=== PATIENT | male | born 1965 | race American Indian/Alaskan Native ===

== ENCOUNTER 2016-10-05 09:35 | Emergency (ER) | payer SELFPAY ==
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
--- NOTE | 2016-10-05 16:10 | Cat Scan Report ---
CT ORBIT/EAR/FOSSA WITHOUT CONTRAST: INDICATION: Right eye injury, painful EOM. COMPARISON: 07/18/[address] FINDINGS: Noncontrast axial, sagittal and coronal CT reconstructions through the orbits demonstrates normal eye globes with orthotopic position of the lenses. Preserved retrobulbar fat. Slight right facial soft tissue stranding presumed post-traumatic. Mild right maxillary sinus mucosal thickening inferiorly. Poor dental hygiene with numerous maxillary periapical cysts noted measuring up to approximately 7 mm on the left anteriorly, axial image 6, series 2. Mild ethmoid sinusitis, right more than left. Slight right frontal and left sphenoid sinus mucosal thickening may also be present. Clear remainder imaged paranasal sinuses and temporal bone air cells. Right external auditory canal debris may be directly visualized. Nasal septum fairly midline, though a small 2 mm rightward nasal septal spur may be present. Patent ostiomeatal complexes bilaterally. Normal imaged intracranial appearance. CONCLUSION: 1. No acute facial fractures, though slight right-sided facial soft tissue swelling possible, as described. 2. Few other incidental findings, including dental and sinus disease, amongst others, as detailed above. Thank you for the opportunity to participate in this patient's care.
[2016-10-05] MEDS ORDERED: TETCAINE OD ONE (16:24)
[2016-10-05] MEDS ORDERED: [UNRECOGNIZED DRUG - OTHER] OD ONE (16:24)
[2016-10-05] MEDS ORDERED: BSS OD ONE (16:24)
[2016-10-05] MEDS ORDERED: FUL-GLO OP ONE (16:34)
[2016-10-05] MEDS ORDERED: BSS ONE (16:34)
[2016-10-05 17:39] VITALS: BP 182/133
== END 2016-10-05 18:22 | disposition home or self-care (01) ==
LOC: ED 09:35
DX: H20.9 Unspecified iridocyclitis (principal); I10 Essential (primary) hypertension; F17.200 Nicotine dependence, unspecified, uncomplicated; W22.8XXA Striking against or struck by other objects, initial encounter; Y93.9 Activity, unspecified; Y92.9 Unspecified place or not applicable; Y99.9 Unspecified external cause status
CPT/HCPCS: 70480

== ENCOUNTER 2017-11-22 14:30 | Emergency (ER) | payer OTHER ==
[2017-11-22] MEDS ORDERED: NACL 0.9% 1000 ML 1,000 ML IV ONE (14:56)
[2017-11-22] MEDS ORDERED: TORADOL IV ONE (14:56)
[2017-11-22] MEDS ORDERED: ZOFRAN IV ONE (14:56)
[2017-11-22] MEDS ORDERED: MORPHINE IV ONE (14:56)
--- NOTE | 2017-11-22 14:56 | Emergency Department Report ---
Blank Doc - Documentation Documentation: The patient is a 52-year-old Afghan male who was having right-sided flank pain today. Patient states he also said some nausea vomiting. Patient states he has a sensation that he feels like he needs to go to the bathroom. Patient will be moved to a treatment area to get labs urine and a CT to rule out a kidney stone.
[2017-11-22 15:25] LABS: Basophils # (Auto) 0.1 K/mm3 (0.0-0.1); Basophils % (Auto) 0.5 % (0.0-1.8); Eosinophils # (Auto) 0.1 K/mm3 (0.0-0.4); Eosinophils % (Auto) 1.1 % (0.0-4.3); Hematocrit 41.2 % (35.5-45.6); Hemoglobin 13.3 gm/dl (11.8-15.2); Lymphocytes # (Auto) 2.5 K/mm3 (1.2-5.4); Lymphocytes % (Auto) 20.4 % (13.4-35.0); Mean Corpuscular HGB Conc 32 % (32-34); Mean Corpuscular Hemoglobin 26 pg (28-32); Mean Corpuscular Volume 81 fl (84-94); Monocytes # (Auto) 0.7 K/mm3 (0.0-0.8); Monocytes % (Auto) 5.9 % (0.0-7.3); Platelet Count 180 K/mm3 (140-440); Red Blood Count 5.09 M/mm3 (3.65-5.03)
[2017-11-22 15:37] LABS: Calcium 8.9 mg/dL (8.4-10.2)
[2017-11-22 15:40] LABS: Bacteria,Urine 1+ /HPF (Negative); Bilirubin,Urine NEG (Negative); Blood,Urine SM (Negative); Color,Urine Straw (Yellow); Mucus,Urine FEW /HPF; Protein,Urine <15 mg/dL mg/dL (Negative); Urobilinogen,Urine < 2.0 mg/dL (<2.0)
--- NOTE | 2017-11-22 16:25 | Emergency Department Report ---
ED Abdominal Pain HPI - General Chief Complaint: Abdominal Pain Stated Complaint: "Im in pain" Time Seen by Provider: 11/22/17 14:52 Source: patient Mode of arrival: Ambulatory Limitations: No Limitations - History of Present Illness Initial Comments: This is a 52-year-old male nontoxic, well nourished in appearance, no acute signs of distress presents to the ED with c/o of right flank pain x1 day. Patient stated he wake up this morning with severe flank pain. Patient stated in the waiting room in the hospital he vomited which subsided his symptoms. Patient currently denies any pain. Patient denies any nausea, vomiting, chest pain, shortness of rbeathe, abdominal pain, headache stiff, fever, or chills. Patient denies dysuria, hematuria, or polyuria. Patient denies any allergies or significant past medical history. MD Complaint: flank pain -: This morning Location: R flank Radiation: none Severity: mild Severity scale (0 -10): 8 Quality: aching Consistency: constant Improves With: nothing Worsens With: nothing Associated Symptoms: nausea, vomiting. denies: diarrhea, fever, chills, constipation, dysuria, hematemesis, hematochezia, melena, hematuria, anorexia, syncope - Related Data Previous Rx's Medication Instructions Recorded Last Taken Type Cyclobenzaprine [Flexeril 10mg] 10 mg PO TID PRN #30 tablet 05/29/14 Unknown Rx HYDROcodone/APAP 5-325 [[place] 1 each PO Q6HR PRN #10 tablet 05/29/14 Unknown Rx 5/325] Hydrocortisone 2.5% [Hytone 2.5% 1 applicatio TP TID #1 tube 05/29/14 Unknown Rx CREAM] Ibuprofen [Motrin] 800 mg PO Q8H #30 tablet 05/29/14 Unknown Rx Lisinopril/Hydrochlorothiazide 1 tab PO QDAY #30 tablet 07/18/14 Unknown Rx [Zestoretic 10-12.5 mg] Acetaminophen/Codeine [Tylenol #3] 1 tab PO TID PRN #15 tab 04/24/15 Unknown Rx methOCARBAMOL [Robaxin TAB] 500 mg PO BID #30 tab 04/24/15 Unknown Rx prednisoLONE ACETATE [Prednisolone 2 drops OP QID #1 bottle 10/05/16 Unknown Rx Acetate] Ibuprofen [Motrin] 600 mg PO Q8H PRN #30 tablet 11/22/17 Unknown Rx Allergies Allergy/AdvReac Type Severity Reaction Status Date / Time No Known Allergies Allergy Verified 04/24/15 14:48 ED Review of Systems ROS: Stated complaint: "Im in pain" Other details as noted in HPI Constitutional: denies: chills, fever Eyes: denies: eye pain, eye discharge, vision change ENT: denies: ear pain, throat pain Respiratory: denies: cough, shortness of breath, wheezing Cardiovascular: denies: chest pain, palpitations Endocrine: no symptoms reported Gastrointestinal: denies: abdominal pain, nausea, diarrhea Genitourinary: denies: urgency, dysuria Musculoskeletal: back pain (right flank pain). denies: joint swelling, arthralgia Skin: denies: rash, lesions Neurological: denies: headache, weakness, paresthesias Psychiatric: denies: anxiety, depression Hematological/Lymphatic: denies: easy bleeding, easy bruising ED Past Medical Hx - Past Medical History Hx Hypertension: Yes - Social History Smoking Status: Current Every Day Smoker Substance Use Type: None - Medications Home Medications: Home Medications Medication Instructions Recorded Confirmed Last Taken Type Cyclobenzaprine [Flexeril 10mg] 10 mg PO TID PRN #30 tablet 05/29/14 Unknown Rx HYDROcodone/APAP 5-325 [[place] 1 each PO Q6HR PRN #10 tablet 05/29/14 Unknown Rx 5/325] Hydrocortisone 2.5% [Hytone 2.5% 1 applicatio TP TID #1 tube 05/29/14 Unknown Rx CREAM] Ibuprofen [Motrin] 800 mg PO Q8H #30 tablet 05/29/14 Unknown Rx Lisinopril/Hydrochlorothiazide 1 tab PO QDAY #30 tablet 07/18/14 Unknown Rx [Zestoretic 10-12.5 mg] Acetaminophen/Codeine [Tylenol #3] 1 tab PO TID PRN #15 tab 04/24/15 Unknown Rx methOCARBAMOL [Robaxin TAB] 500 mg PO BID #30 tab 04/24/15 Unknown Rx prednisoLONE ACETATE [Prednisolone 2 drops OP QID #1 bottle 10/05/16 Unknown Rx Acetate] Ibuprofen [Motrin] 600 mg PO Q8H PRN #30 tablet 11/22/17 Unknown Rx ED Physical Exam - General Limitations: No Limitations General appearance: alert, in no apparent distress - Head Head exam: Present: atraumatic, normocephalic - Eye Eye exam: Present: normal appearance Pupils: Present: normal accommodation - ENT ENT exam: Present: normal exam, normal orophraynx, mucous membranes moist, TM's normal bilaterally, normal external ear exam - Neck Neck exam: Present: normal inspection, full ROM. Absent: tenderness, meningismus, lymphadenopathy, thyromegaly - Respiratory Respiratory exam: Present: normal lung sounds bilaterally. Absent: respiratory distress, wheezes, rales, rhonchi, stridor, chest wall tenderness, decreased breath sounds, prolonged expiratory - Cardiovascular Cardiovascular Exam: Present: regular rate, normal rhythm, normal heart sounds. Absent: bradycardia, tachycardia, irregular rhythm, systolic murmur, diastolic murmur, rubs, gallop - GI/Abdominal GI/Abdominal exam: Present: soft, normal bowel sounds. Absent: distended, tenderness, guarding, rebound, rigid, diminished bowel sounds - Expanded GI/Abdominal Exam Expanded GI/Abdominal exam: Absent: psoas sign, obturator sign, heel tap sign, Coulter's sign, Rovsing's sign, tenderness at Mcburney's Point, ascites - Rectal Rectal exam: Present: deferred - Extremities Exam Extremities exam: Present: normal inspection, full ROM, normal capillary refill. Absent: tenderness, pedal edema, joint swelling, calf tenderness - Back Exam Back exam: Present: normal inspection, full ROM. Absent: tenderness, CVA tenderness (R), CVA tenderness (L), muscle spasm, paraspinal tenderness, vertebral tenderness, rash noted - Neurological Exam Neurological exam: Present: alert, oriented X3, CN II-XII intact, normal gait, reflexes normal - Psychiatric Psychiatric exam: Present: normal affect, normal mood - Skin Skin exam: Present: warm, dry, intact, normal color. Absent: rash ED Course Vital Signs 11/22/17 14:33 Temperature 98.9 F Pulse Rate 77 Respiratory 20 Rate Blood Pressure 193/115 O2 Sat by Pulse 98 Oximetry - Reevaluation(s) Reevaluation #1: 11/22/17 16:26 Patient is speaking in full sentences with no signs of distress noted. - Consultations Consultation #1: 11/22/17 16:26 Patient has been consulted with Dr. Huynh about patient history, physical exam , and labs and examined and screened patient and agrees to ED plan of care and discharge plan of care. ED Medical Decision Making - Lab Data Result diagrams: 11/22/17 15:07 11/22/17 15:07 - Medical Decision Making This is a 52-year-old male that presents with calculus. Patient is stable and was examined by me and Dr. Huynh. CT of abdomen/pelvis without contrast obtained and dictated by radiologist. Patient was notified of the CT results with focus noted by the patient. Upon examination patient denies any flank pain as he stated subsided. She did receive 1 L of normal saline, morphine, Toradol, and Zofran. Patient was instructed not to operate after discharge due to drowsiness of morphine as he stated he will have somebody pick him up and drive him home. Patient was instructed to increase hydration. Patient is discharge with motrin. Patient was instructed to Follow-up with a primary care doctor in 3-5 days or if symptoms worsen and continue return to emergency room as soon as possible. At time of discharge, the patient does not seem toxic or ill in appearance. No acute signs of distress noted. Patient agrees to discharge treatment plan of care. No further questions noted by the patient. Critical care attestation.: If time is entered above; I have spent that time in minutes in the direct care of this critically ill patient, excluding procedure time. ED Disposition Clinical Impression: Bilateral kidney stones Disposition: DC-01 TO HOME OR SELFCARE Is pt being admited?: No Does the pt Need Aspirin: No Condition: Stable Instructions: Kidney Stones (ED) Additional Instructions: Follow-up with a primary care/nephrology doctor in 3-5 days or if symptoms worsen and continue return to emergency room as soon as possible. Prescriptions: Ibuprofen [Motrin] 600 mg PO Q8H PRN #30 tablet PRN Reason: Pain Referrals: PRIMARY CAREMD [Primary Care Provider] - 3-5 Days SEAN HERNANDEZ MD [Staff Physician] - 3-5 Days TATO DALLAS MD [Staff Physician] - 3-5 Days [facility] [Outside] - 3-5 Days [facility] [Outside] - 3-5 Days Forms: Work/School Release Form(ED)
--- NOTE | 2017-11-22 17:12 | Cat Scan Report ---
FINAL REPORT EXAM: CT ABDOMEN PELVIS WO CON HISTORY: flank pain TECHNIQUE: Unenhanced stone protocol CT of the abdomen and pelvis at 2.5 millimeter axial increments. Coronal and sagittal reconstruction was also performed. PRIORS: None. FINDINGS: There is 3.8 mm calculus located within the bladder just inside the right distal ureterovesical junction. There is moderate right-sided hydronephrosis suggesting residual edema at the ureterovesical junction the stranding around the right ureter and right kidney is noted suggesting inflammation. There is a tiny 2 mm nonobstructing calculus in the midpole left kidney. There is a homogeneous hyperdense 1.2 x 1.0 cm focus off the lateral midpole of the right kidney. This is probably a hemorrhagic cyst but should be confirmed with ultrasound. No evidence for bladder mass is seen. Otherwise, within the limits of a noncontrast exam, the liver, spleen, pancreas, gallbladder, and adrenal glands are unremarkable. No evidence for retroperitoneal or pelvic lymphadenopathy is seen. The bowel loops have normal caliber. No fluid collection or free air is seen within the abdomen or pelvis. The appendix is normal. Within the pelvis, the prostate is normal. Diverticuli of the proximal sigmoid colon are noted without active diverticulitis. Images through the upper abdomen include the lung bases which are expanded and clear. Bony structures show numerous lucent foci with surrounding sclerotic margins throughout the lumbar spine from T12-L4 and the mid thoracic spine. Severe disc space narrowing from L1 through L4 is noted. Findings are likely related to Schmorl's nodes, subchondral cysts, and degenerative changes. A similar finding is also noted in the right ilium near the SI joint. IMPRESSION: 1. The the recently passed calculus now seen in the urinary bladder. There is residual edema at the right ureterovesical junction with moderate hydronephrosis of the right collecting system still noted. Extensive stranding in the adjacent fat surrounding the collecting system is also noted suggesting inflammation 2. Nonobstructing calculus in the left midpole kidney 3. Hyperdense rounded focus off the lateral midpole right kidney which is probably a hemorrhagic cyst but should be confirmed with ultrasound 4. Diverticuli of the sigmoid colon 5. Numerous foci throughout the bony structures, findings are likely consistent with Schmorl's nodes, subchondral cysts, and degenerative change.
[2017-11-22 17:33] VITALS: BP 146/92
== END 2017-11-22 17:42 | disposition home or self-care (01) ==
LOC: ED 14:30
DX: N20.0 Calculus of kidney (principal); I10 Essential (primary) hypertension; F17.200 Nicotine dependence, unspecified, uncomplicated
CPT/HCPCS: 36415; 74176; 80048; 81001; 85025; 96361; 96374; 96375; 99284; J1885; J2270; J2405; J7030

== ENCOUNTER 2017-12-17 19:42 | Emergency (ER) | payer SELFPAY ==
[2017-12-17] MEDS ORDERED: TYLENOL PO ONE (20:14)
[2017-12-17] MEDS ORDERED: NACL 0.9% 1000 ML 1,000 ML IV ONE (22:22)
[2017-12-17] MEDS ORDERED: TORADOL IV ONE (22:22)
[2017-12-17] MEDS ORDERED: ZOFRAN IV ONE (22:22)
--- NOTE | 2017-12-17 22:27 | Emergency Department Report ---
HPI - General Chief Complaint: Upper Respiratory Infection Time Seen by Provider: 12/17/17 22:15 - HPI HPI: [place] 25 The patient is a 52-year-old male presenting with chief complaint of fever and cough. The patient states his symptoms began yesterday afternoon with a nonproductive cough. Patient states isn't a progress developed soreness in his throat in addition to facial pains. The patient states he then developed nausea vomiting and diarrhea. Patient was not aware of any sick contacts Location: [See above] Duration: 2 days Quality: Soreness Severity: Moderate Modifying factors: [see above] Context: [see above] Mode of transportation: [not driving] ED Past Medical Hx - Past Medical History Hx Hypertension: Yes - Surgical History Past Surgical History?: No - Family History Family history: no significant - Social History Smoking Status: Current Every Day Smoker (1 pack per day) Substance Use Type: Marijuana - Medications Home Medications: Home Medications Medication Instructions Recorded Confirmed Last Taken Type Cyclobenzaprine [Flexeril 10mg] 10 mg PO TID PRN #30 tablet 05/29/14 Unknown Rx HYDROcodone/APAP 5-325 [[place] 1 each PO Q6HR PRN #10 tablet 05/29/14 Unknown Rx 5/325] Hydrocortisone 2.5% [Hytone 2.5% 1 applicatio TP TID #1 tube 05/29/14 Unknown Rx CREAM] Ibuprofen [Motrin] 800 mg PO Q8H #30 tablet 05/29/14 Unknown Rx Lisinopril/Hydrochlorothiazide 1 tab PO QDAY #30 tablet 07/18/14 Unknown Rx [Zestoretic 10-12.5 mg] Acetaminophen/Codeine [Tylenol #3] 1 tab PO TID PRN #15 tab 04/24/15 Unknown Rx methOCARBAMOL [Robaxin TAB] 500 mg PO BID #30 tab 04/24/15 Unknown Rx prednisoLONE ACETATE [Prednisolone 2 drops OP QID #1 bottle 10/05/16 Unknown Rx Acetate] Ibuprofen [Motrin] 600 mg PO Q8H PRN #30 tablet 11/22/17 Unknown Rx Ciprofloxacin HCl [Ciprofloxacin 100 mg PO BID #20 tablet 12/18/17 Unknown Rx TAB] Diphenoxylate/Atropine [Lomotil] 2 tab PO QID PRN #20 tablet 12/18/17 Unknown Rx HYDROcodone/APAP 5-325 [[place] 1 - 2 each PO Q6HR PRN #10 tablet 12/18/17 Unknown Rx 5/325] Promethazine [Phenergan TAB] 25 mg PO Q6HR PRN #20 tab 12/18/17 Unknown Rx Promethazine [Phenergan] 25 mg [place] Q6HR PRN #5 supp.rect 12/18/17 Unknown Rx ED Review of Systems ROS: Stated complaint: COUGH Other details as noted in HPI Constitutional: fever ENT: throat pain Respiratory: cough Gastrointestinal: nausea, vomiting, diarrhea Musculoskeletal: myalgia Physical Exam - Physical Exam Vital Signs: Vital Signs 12/17/17 12/17/17 12/17/17 20:05 20:10 20:19 Temperature 102.2 F H 102.2 F H Pulse Rate 67 77 Respiratory 18 18 18 Rate Blood Pressure 168/106 168/106 O2 Sat by Pulse 95 97 Oximetry 12/17/17 22:21 Temperature 100.2 F H Pulse Rate Respiratory Rate Blood Pressure O2 Sat by Pulse Oximetry Physical Exam: GENERAL: The patient is well-developed well-nourished male lying on stretcher not appearing to be in acute distress. [] HEENT: Normocephalic. Atraumatic. Patient has moist mucous membranes. NECK: Supple. No meningitic signs are noted. There is no adenopathy noted. CHEST/LUNGS: Clear to auscultation. There is no respiratory distress noted. HEART/CARDIOVASCULAR: Regular. There is no tachycardia. There is no gallop rub or murmur. ABDOMEN: Abdomen is soft, nontender. Patient has normal bowel sounds. There is no abdominal distention. SKIN: There is no rash. There is no edema. There is no diaphoresis. NEURO: The patient is awake, alert, and oriented. The patient is cooperative. The patient has normal speech MUSCULOSKELETAL:There is no evidence of acute injury. ED Course Vital Signs 12/17/17 12/17/17 12/17/17 20:05 20:10 20:19 Temperature 102.2 F H 102.2 F H Pulse Rate 67 77 Respiratory 18 18 18 Rate Blood Pressure 168/106 168/106 O2 Sat by Pulse 95 97 Oximetry 12/17/17 22:21 Temperature 100.2 F H Pulse Rate Respiratory Rate Blood Pressure O2 Sat by Pulse Oximetry ED Medical Decision Making - Lab Data Result diagrams: 12/17/17 Unknown 12/17/17 Unknown Laboratory Tests 12/17/17 12/17/17 12/17/17 00:19 Unknown Unknown WBC 5.1 RBC 4.68 Hgb 12.2 Hct 38.0 MCV 81 L MCH 26 L MCHC 32 RDW 14.8 Plt Count 141 [place] % (Auto) Paper Cone Maker Add Manual Diff Complete Total Counted 100 Seg Neuts % (Manual) 60.0 Band Neutrophils % 8.0 Lymphocytes % (Manual) 6.0 L Reactive Lymphs % (Man) 0 Monocytes % (Manual) 26.0 H Eosinophils % (Manual) 0 Basophils % (Manual) 0 Metamyelocytes % 0 Myelocytes % 0 Promyelocytes % 0 Blast Cells % 0 Nucleated RBC % Not Reportable Seg Neutrophils # Man 3.1 Band Neutrophils # 0.4 Lymphocytes # (Manual) 0.3 L Abs React Lymphs (Man) 0.0 Monocytes # (Manual) 1.3 H Eosinophils # (Manual) 0.0 Basophils # (Manual) 0.0 Metamyelocytes # 0.0 Myelocytes # 0.0 Promyelocytes # 0.0 Blast Cells # 0.0 WBC Morphology Not Reportable Hypersegmented Neuts Not Reportable Hyposegmented Neuts Not Reportable Hypogranular Neuts Not Reportable Smudge Cells Not Reportable Toxic Granulation Not Reportable Toxic Vacuolation Not Reportable Dohle Bodies Not Reportable Pelger-Huet Anomaly Not Reportable Gabrielle Rods Not Reportable Platelet Estimate Appears normal Clumped Platelets Not Reportable Plt Clumps, EDTA Not Reportable Large Platelets Not Reportable Giant Platelets Not Reportable Platelet Satelliting Not Reportable Plt Morphology Comment Not Reportable RBC Morphology Not Reportable Dimorphic RBCs Not Reportable Polychromasia Not Reportable Hypochromasia 1+ Poikilocytosis Not Reportable Anisocytosis 1+ Microcytosis Not Reportable Macrocytosis Not Reportable Spherocytes Not Reportable Pappenheimer Bodies Not Reportable Sickle Cells Not Reportable Target Cells Not Reportable Tear Drop Cells Not Reportable Ovalocytes Not Reportable Helmet Cells Not Reportable Hardy-Sarcoxie Bodies Not Reportable [place] Rings Not Reportable Meadow Cells Not Reportable Bite Cells Not Reportable Crenated Cell Not Reportable Elliptocytes Not Reportable Acanthocytes (Spur) Not Reportable Rouleaux Not Reportable Hemoglobin C Crystals Not Reportable Schistocytes Not Reportable Malaria parasites Not Reportable Abel Bodies Not Reportable Hem Pathologist Commnt No Sodium 133 L Potassium 3.5 L Chloride 96.3 L Carbon Dioxide 25 Anion Gap 15 BUN 13 Creatinine 1.3 Estimated GFR > 60 BUN/Creatinine Ratio 10 Glucose 112 H Calcium 8.9 Total Bilirubin 0.60 AST 40 ALT 14 Alkaline Phosphatase 50 Total Protein 6.9 Albumin 3.7 L Albumin/Globulin Ratio 1.2 Lipase 39 Influenza A (Rapid) Negative Influenza B (Rapid) Negative - Radiology Data Radiology results: image reviewed (chest x-ray) interpreted by me: Chest x-ray-no focal infiltrates, no pneumothorax - Differential Diagnosis gastroenteritis, influenza, sinusitis, pneumonia, Critical care attestation.: If time is entered above; I have spent that time in minutes in the direct care of this critically ill patient, excluding procedure time. ED Disposition Clinical Impression: Acute sinusitis, Nausea vomiting and diarrhea Disposition: TO HOME OR SELFCARE Is pt being admited?: No Does the pt Need Aspirin: No Condition: Stable Instructions: Acute Nausea and Vomiting (ED), Sinusitis (ED) Additional Instructions: Return to the emergency department immediately should you develop worsening symptoms, fever, inability to tolerate food or liquid or any other concerns. Prescriptions: Ciprofloxacin HCl [Ciprofloxacin TAB] 100 mg PO BID #20 tablet Diphenoxylate/Atropine [Lomotil] 2 tab PO QID PRN #20 tablet PRN Reason: Diarrhea HYDROcodone/APAP 5-325 [[place] 5/325] 1 - 2 each PO Q6HR PRN #10 tablet PRN Reason: Pain Promethazine [Phenergan TAB] 25 mg PO Q6HR PRN #20 tab PRN Reason: Nausea Promethazine [Phenergan] 25 mg [place] Q6HR PRN #5 supp.rect PRN Reason: Vomiting Referrals: SRINATH LAY MD [Primary Care Provider] - 3-5 Days Time of Disposition: 01:28
[2017-12-17 22:46] LABS: Hemoglobin 12.2 gm/dl (11.8-15.2); Mean Corpuscular HGB Conc 32 % (32-34); Mean Corpuscular Hemoglobin 26 pg (28-32); Mean Corpuscular Volume 81 fl (84-94); Platelet Count 141 K/mm3 (140-440); Red Blood Count 4.68 M/mm3 (3.65-5.03); Red Cell Distribution Width 14.8 % (13.2-15.2)
[2017-12-17 23:01] LABS: Alanine Aminotransferase 14 units/L (7-56); Albumin 3.7 g/dL (3.9-5); BUN/Creatinine Ratio 10; Blood Urea Nitrogen 13 mg/dL (9-20); Calcium 8.9 mg/dL (8.4-10.2); Hemolysis Index 6; Lipase 39 units/L (13-60)
[2017-12-18 00:07] LABS: Anisocytosis 1+; Band Neutrophils # (Manual) 0.4 K/mm3; Basophils % (Manual) 0 % (0.0-1.8); Eosinophils % (Manual) 0 % (0.0-4.3); Hypochromasia 1+; Total Cells Counted 100
--- NOTE | 2017-12-18 00:30 | XRay Report ---
FINAL REPORT PROCEDURE: XR CHEST ROUTINE 2V TECHNIQUE: PA and lateral chest radiographs were obtained. CPT 77736 HISTORY: cough, fever COMPARISON: No prior studies are available for comparison. FINDINGS: Heart: Normal. Mediastinum/Vessels: Normal. Lungs/Pleural space: There are no infiltrates, effusions or pneumothoraces.. Bony thorax: No acute osseous abnormality. Other: IMPRESSION: Normal heart and lungs..
[2017-12-18] MEDS ORDERED: XYLOCAINE 1% MPF 5 mL INFILTRATI ONE (01:23)
[2017-12-18] MEDS ORDERED: ROCEPHIN IM ONE (01:23)
[2017-12-18 01:30] VITALS: BP 164/99
[2017-12-18] MEDS ORDERED: ROCEPHIN/NS 1 GM/50 ML 1 GM/50 ML BAG IV ONE (01:31)
[2017-12-18] MEDS ORDERED: cefTRIAXone 1 GM in NACL 0.9% 20 ML IV ONE (02:00)
== END 2017-12-18 02:15 | disposition home or self-care (01) ==
LOC: ED 19:42
DX: J01.90 Acute sinusitis, unspecified (principal); R11.2 Nausea with vomiting, unspecified; R19.7 Diarrhea, unspecified; F17.210 Nicotine dependence, cigarettes, uncomplicated; I10 Essential (primary) hypertension; F12.10 Cannabis abuse, uncomplicated
CPT/HCPCS: 36415; 71046; 80053; 83690; 85007; 85025; 87040; 87400; 96361; 96374; 96375; 99284; J0696; J1885; J2405; J7030

== ENCOUNTER 2020-11-01 08:51 | Emergency (ER) | payer SELFPAY ==
[2020-11-01 09:24] VITALS: BP 159/112
--- NOTE | 2020-11-01 09:28 | Event Note ---
ED Screening Note Date of service: 11/01/20 Time: 09:26 ED Screening Note: 55-year-old -[place] male with a history of hypertension presents to the emergency room for a headache that he has been having. Patient reports he has been out of his blood pressure medications for several months. Patient reports that he was taking amlodipine 10 mg daily and hydralazine 100 mg 3 times daily and lisinopril 40 mg patient does not have a primary care provider. This initial assessment/diagnostic orders/clinical plan/treatment(s) is/are subject to change based on patients health status, clinical progression and re- assessment by fellow clinical providers in the ED. Further treatment and workup at subsequent clinical providers discretion. Patient/guardian urged not to elope from the ED as their condition may be serious if not clinically assessed and managed. Initial orders include:
[2020-11-01] MEDS ORDERED: ACETAMINOPHEN 325 MG TAB PO ONE (09:29)
[2020-11-01] MEDS ORDERED: hydrALAZINE 100 MG TAB PO ONE (09:29)
[2020-11-01 11:02] LABS: Alanine Aminotransferase 10 units/L (7-56); BUN/Creatinine Ratio 9; Blood Urea Nitrogen 11 mg/dL (9-20); Calcium 9.4 mg/dL (8.4-10.2); Hemolysis Index 6
--- NOTE | 2020-11-01 12:11 | Emergency Department Report ---
ED General Adult HPI - General Chief complaint: Headache Stated complaint: hypertension Source: patient Mode of arrival: Ambulatory Limitations: No Limitations - History of Present Illness Initial comments: 55-year-old -[place] male with a history of hypertension presents to the emergency room for a headache that he has been having. Patient reports he has been out of his blood pressure medications for several months. Patient reports that he was taking amlodipine 10 mg daily and hydralazine 100 mg 3 times daily and lisinopril 40 mg patient does not have a primary care provider. Onset/Timin -: week(s) Location: head Severity scale (0 -10): 10 Quality: aching Consistency: constant Improves with: none Worsens with: none Associated Symptoms: denies: chest pain, cough, fever/chills, nausea/vomiting, shortness of breath, weakness Treatments Prior to Arrival: none - Related Data Previous Rx's Medication Instructions Recorded Last Taken Type Cyclobenzaprine [Flexeril 10mg] 10 mg PO TID PRN #30 tablet 05/29/14 Unknown Rx HYDROcodone/APAP 5-325 [[place] 1 each PO Q6HR PRN #10 tablet 05/29/14 Unknown Rx 5/325] Hydrocortisone 2.5% [Hytone 2.5% 1 applicatio TP TID #1 tube 05/29/14 Unknown Rx CREAM] Ibuprofen [Motrin] 800 mg PO Q8H #30 tablet 05/29/14 Unknown Rx Lisinopril/Hydrochlorothiazide 1 tab PO QDAY #30 tablet 07/18/14 Unknown Rx [Zestoretic 10-12.5 mg] Acetaminophen/Codeine [Tylenol #3] 1 tab PO TID PRN #15 tab 04/24/15 Unknown Rx methOCARBAMOL [Robaxin TAB] 500 mg PO BID #30 tab 04/24/15 Unknown Rx prednisoLONE ACETATE [Prednisolone 2 drops OP QID #1 bottle 10/05/16 Unknown Rx Acetate] Ibuprofen [Motrin] 600 mg PO Q8H PRN #30 tablet 11/22/17 Unknown Rx Ciprofloxacin HCl [Ciprofloxacin 100 mg PO BID #20 tablet 12/18/17 Unknown Rx TAB] Diphenoxylate/Atropine [Lomotil] 2 tab PO QID PRN #20 tablet 12/18/17 Unknown Rx HYDROcodone/APAP 5-325 [[place] 1 - 2 each PO Q6HR PRN #10 tablet 12/18/17 Unknown Rx 5/325] Promethazine [Phenergan TAB] 25 mg PO Q6HR PRN #20 tab 12/18/17 Unknown Rx Promethazine [Phenergan] 25 mg [place] Q6HR PRN #5 supp.rect 12/18/17 Unknown Rx amLODIPine 10 mg PO DAILY #30 tab 11/01/20 Unknown Rx Allergies Allergy/AdvReac Type Severity Reaction Status Date / Time No Known Allergies Allergy Verified 04/24/15 14:48 ED Review of Systems ROS: Stated complaint: hypertension Other details as noted in HPI ED Past Medical Hx - Past Medical History Previous Medical History?: Yes Hx Hypertension: Yes - Social History Smoking Status: Current Every Day Smoker Substance Use Type: Marijuana - Medications Home Medications: Home Medications Medication Instructions Recorded Confirmed Last Taken Type Cyclobenzaprine [Flexeril 10mg] 10 mg PO TID PRN #30 tablet 05/29/14 Unknown Rx HYDROcodone/APAP 5-325 [[place] 1 each PO Q6HR PRN #10 tablet 05/29/14 Unknown Rx 5/325] Hydrocortisone 2.5% [Hytone 2.5% 1 applicatio TP TID #1 tube 05/29/14 Unknown Rx CREAM] Ibuprofen [Motrin] 800 mg PO Q8H #30 tablet 05/29/14 Unknown Rx Lisinopril/Hydrochlorothiazide 1 tab PO QDAY #30 tablet 07/18/14 Unknown Rx [Zestoretic 10-12.5 mg] Acetaminophen/Codeine [Tylenol #3] 1 tab PO TID PRN #15 tab 04/24/15 Unknown Rx methOCARBAMOL [Robaxin TAB] 500 mg PO BID #30 tab 04/24/15 Unknown Rx prednisoLONE ACETATE [Prednisolone 2 drops OP QID #1 bottle 10/05/16 Unknown Rx Acetate] Ibuprofen [Motrin] 600 mg PO Q8H PRN #30 tablet 11/22/17 Unknown Rx Ciprofloxacin HCl [Ciprofloxacin 100 mg PO BID #20 tablet 12/18/17 Unknown Rx TAB] Diphenoxylate/Atropine [Lomotil] 2 tab PO QID PRN #20 tablet 12/18/17 Unknown Rx HYDROcodone/APAP 5-325 [[place] 1 - 2 each PO Q6HR PRN #10 tablet 03/26/18 Unknown Rx 5/325] Promethazine [Phenergan TAB] 25 mg PO Q6HR PRN #20 tab 12/18/17 Unknown Rx Promethazine [Phenergan] 25 mg [place] Q6HR PRN #5 supp.rect 12/18/17 Unknown Rx amLODIPine 10 mg PO DAILY #30 tab 11/01/20 Unknown Rx ED Physical Exam - General Limitations: No Limitations General appearance: alert, in no apparent distress - Head Head exam: Present: atraumatic, normocephalic - Eye Eye exam: Present: normal appearance - ENT ENT exam: Present: mucous membranes moist - Neck Neck exam: Present: normal inspection - Respiratory Respiratory exam: Present: normal lung sounds bilaterally. Absent: respiratory distress - Cardiovascular Cardiovascular Exam: Present: regular rate, normal rhythm. Absent: systolic murmur, diastolic murmur, rubs, gallop - GI/Abdominal GI/Abdominal exam: Present: soft, normal bowel sounds - Rectal Rectal exam: Present: deferred - Extremities Exam Extremities exam: Present: normal inspection. Absent: pedal edema - Back Exam Back exam: Present: normal inspection - Neurological Exam Neurological exam: Present: alert, oriented X3, normal gait - Expanded Neurological Exam Expanded Cranial nerves: EOM's Intact: Normal, Gag Reflex: Normal, Tongue Deviation: Normal, Nystagmus: Normal, Facial Sensation: Normal, Facial Palsy with Forehead Movement: Normal, Facial Palsy without Forehead Movement: Normal Cerebellar function: Finger to Nose: Normal, Heel to García: Normal, Romberg: Normal Upper motor neuron: Mg Neglect: Normal, Pronator Drift: Normal, Sensory Extinction: Normal Sensory exam: Upper Extremity Light Touch: Normal, Upper Extremity Pin Prick: Normal, Upper Extremity Temperature: Normal, UE 2 Point Discrimination: Normal, Lower Extremity Light Touch: Normal, Lower Extremity Pin Prick: Normal, Lower Extremity Temperature: Normal, LE 2 Point Discrimination: Normal Motor strength exam: RUE: 4, LUE: 4, RLE: 4, LLE: 4 Best Eye Response (Cardale): (4) open spontaneously Best Motor Response (Ingrid): (6) obeys commands Best Verbal Response (Ingrid): (5) oriented Cardale Total: 15 - Psychiatric Psychiatric exam: Present: normal affect, normal mood - Skin Skin exam: Present: warm, dry, intact, normal color. Absent: rash ED Course Vital Signs 11/01/20 09:23 Temperature 98.5 F Pulse Rate 79 Respiratory 18 Rate Blood Pressure 159/112 [Right] O2 Sat by Pulse 99 Oximetry ED Medical Decision Making - Lab Data Result diagrams: 11/01/20 09:59 - Medical Decision Making 55-year-old -[place] male with a history of hypertension presents to the emergency room for a headache that he has been having. Patient reports he has been out of his blood pressure medications for several months. Patient reports that he was taking amlodipine 10 mg daily and hydralazine 100 mg 3 times daily and lisinopril 40 mg patient does not have a primary care provider. Patient was given hydralazine 100 mg in triage. Patient be discharged home on amlodipine 10 [address] [facility] Critical care attestation.: If time is entered above; I have spent that time in minutes in the direct care of this critically ill patient, excluding procedure time. ED Disposition Clinical Impression: Noncompliance with medication regimen Hypertension Qualifiers: Hypertension type: unspecified Qualified Code(s): I10 - Essential (primary) hypertension Headache Qualifiers: Headache type: unspecified Headache chronicity pattern: acute headache Intractability: intractable Qualified Code(s): R51.9 - Headache, unspecified Disposition: DC-01 TO HOME OR SELFCARE Is pt being admited?: No Does the pt Need Aspirin: No Condition: Stable Instructions: Hypertension (ED) Additional Instructions: It is very important for you to be compliant with your blood pressure medications. You need to follow-up with a primary care provider. Prescriptions: amLODIPine 10 mg PO DAILY #30 tab Referrals: PRIMARY CAREMD [Primary Care Provider] - 3-5 Days [facility] [Provider Group] - 3-5 Days [facility] [Outside] - 3-5 Days [facility] [Outside] - 3-5 Days
== END 2020-11-01 12:30 | disposition home or self-care (01) ==
LOC: ED 08:51
DX: I10 Essential (primary) hypertension (principal); R51.9 Headache, unspecified; F17.200 Nicotine dependence, unspecified, uncomplicated; F12.90 Cannabis use, unspecified, uncomplicated; Z79.899 Other long term (current) drug therapy; Z91.14 Patient's other noncompliance with medication regimen
CPT/HCPCS: 36415; 80053

== ENCOUNTER 2021-02-07 07:46 | Emergency (ER) | payer SELFPAY | END 2021-02-07 10:17 | disposition left against medical advice (07) | LOC: ED 07:46 | DX: I10 Essential (primary) hypertension (principal); Z53.21 Procedure and treatment not carried out due to patient leaving prior to being seen by health care provider ==

== ENCOUNTER 2021-09-14 14:25 | Emergency (ER) | payer SELFPAY ==
[2021-09-14 14:57] VITALS: BP 173/106
--- NOTE | 2021-09-14 15:01 | Emergency Department Report ---
ED General Adult HPI - General Chief complaint: Back Pain/Injury Stated complaint: Tootache, Pain down both legs Time Seen by Provider: 09/14/21 14:30 Source: patient Mode of arrival: Ambulatory Limitations: No Limitations - History of Present Illness Initial comments: Patient presents with multiple medical problems. He actually complains of a toothache, intermittent headaches, intermittent pain down both legs, and visual changes. He states that some of his symptoms have been going on for a while. Patient states that today, as we are speaking, he just noted having a right parietal headache. This is in the right mastoid and parietal area. It has just started over the last couple of minutes. He describes it as a tightness. Patient actually reported having visual changes. He occasionally sees black spots in his vision. He does not know if this is one eye or both eye. He does not know how long this started. He states is "a while. When questioned further, it has been several months at least. It is not there every day. It just comes and goes. He has no blurry vision or double vision. Patient also reports having some intermittent pain down the legs. Sometimes he gets pain down the right leg. Sometimes down the left leg. Sometimes it stops at the knee. Sometimes the pain goes all the way to his feet. Regardless, this is also been going on for months. He decided to come here today for his myriad symptoms. Severity scale (0 -10): 5 - Related Data Previous Rx's Medication Instructions Recorded Last Taken Type HYDROcodone/APAP 5-325 [[place] 1 each PO Q6HR PRN #10 tablet 05/29/14 Unknown Rx 5/325] Hydrocortisone 2.5% [Hytone 2.5% 1 applicatio TP TID #1 tube 05/29/14 Unknown Rx CREAM] Ibuprofen [Motrin] 800 mg PO Q8H #30 tablet 05/29/14 Unknown Rx Lisinopril/Hydrochlorothiazide 1 tab PO QDAY #30 tablet 07/18/14 Unknown Rx [Zestoretic 10-12.5 mg] Acetaminophen/Codeine [Tylenol #3] 1 tab PO TID PRN #15 tab 04/24/15 Unknown Rx methOCARBAMOL [Robaxin TAB] 500 mg PO BID #30 tab 04/24/15 Unknown Rx prednisoLONE ACETATE [Prednisolone 2 drops OP QID #1 bottle 10/05/16 Unknown Rx Acetate] Ibuprofen [Motrin] 600 mg PO Q8H PRN #30 tablet 11/22/17 Unknown Rx Diphenoxylate/Atropine [Lomotil] 2 tab PO QID PRN #20 tablet 12/18/17 Unknown Rx HYDROcodone/APAP 5-325 [[place] 1 - 2 each PO Q6HR PRN #10 tablet 12/18/17 Unknown Rx 5/325] Promethazine [Phenergan TAB] 25 mg PO Q6HR PRN #20 tab 12/18/17 Unknown Rx Promethazine [Phenergan] 25 mg [place] Q6HR PRN #5 supp.rect 12/18/17 Unknown Rx amLODIPine 10 mg PO DAILY #30 tab 11/01/20 Unknown Rx Lidocaine [Lidoderm] 1 each TP DAILY #30 adh..patch 09/14/21 Unknown Rx Penicillin V Potassium 500 mg PO TID #21 tablet 09/14/21 Unknown Rx Allergies Allergy/AdvReac Type Severity Reaction Status Date / Time No Known Allergies Allergy Verified 04/24/15 14:48 ED Review of Systems ROS: Stated complaint: Tootache, Pain down both legs Other details as noted in HPI Comment: All other systems reviewed and negative Constitutional: denies: fever Eyes: as per HPI ENT: denies: throat pain Respiratory: denies: cough Cardiovascular: denies: chest pain Endocrine: denies: unexplained weight loss Gastrointestinal: denies: abdominal pain Genitourinary: denies: dysuria Musculoskeletal: as per HPI Skin: denies: rash Neurological: as per HPI Hematological/Lymphatic: denies: easy bruising ED Past Medical Hx - Past Medical History Hx Hypertension: Yes Hx CVA: Yes - Family History Family history: hypertension - Social History Smoking Status: Current Every Day Smoker Substance Use Type: Marijuana - Medications Home Medications: Home Medications Medication Instructions Recorded Confirmed Last Taken Type HYDROcodone/APAP 5-325 [[place] 1 each PO Q6HR PRN #10 tablet 05/29/14 Unknown Rx 5/325] Hydrocortisone 2.5% [Hytone 2.5% 1 applicatio TP TID #1 tube 05/29/14 Unknown Rx CREAM] Ibuprofen [Motrin] 800 mg PO Q8H #30 tablet 05/29/14 Unknown Rx Lisinopril/Hydrochlorothiazide 1 tab PO QDAY #30 tablet 07/18/14 Unknown Rx [Zestoretic 10-12.5 mg] Acetaminophen/Codeine [Tylenol #3] 1 tab PO TID PRN #15 tab 04/24/15 Unknown Rx methOCARBAMOL [Robaxin TAB] 500 mg PO BID #30 tab 04/24/15 Unknown Rx prednisoLONE ACETATE [Prednisolone 2 drops OP QID #1 bottle 10/05/16 Unknown Rx Acetate] Ibuprofen [Motrin] 600 mg PO Q8H PRN #30 tablet 11/22/17 Unknown Rx Diphenoxylate/Atropine [Lomotil] 2 tab PO QID PRN #20 tablet 12/18/17 Unknown Rx HYDROcodone/APAP 5-325 [[place] 1 - 2 each PO Q6HR PRN #10 tablet 12/18/17 Unknown Rx 5/325] Promethazine [Phenergan TAB] 25 mg PO Q6HR PRN #20 tab 12/18/17 Unknown Rx Promethazine [Phenergan] 25 mg [place] Q6HR PRN #5 supp.rect 12/18/17 Unknown Rx amLODIPine 10 mg PO DAILY #30 tab 11/01/20 Unknown Rx Lidocaine [Lidoderm] 1 each TP DAILY #30 adh..patch 09/14/21 Unknown Rx Penicillin V Potassium 500 mg PO TID #21 tablet 09/14/21 Unknown Rx ED Physical Exam - General Limitations: No Limitations, Other ( Pulse ox noted normal) General appearance: alert, in no apparent distress - Head Head exam: Present: atraumatic, normocephalic - Eye Eye exam: Present: normal appearance, PERRL, EOMI, conjunctival injection, other ( funduscopic exam appears to be normal bilaterally). Absent: scleral icterus - ENT ENT exam: Present: mucous membranes moist, normal external ear exam, other ( diffuse dental caries with a right lower wisdom tooth that is broken off at the gum. There is no gingival erythema.) - Neck Neck exam: Present: normal inspection, tenderness - Respiratory Respiratory exam: Present: normal lung sounds bilaterally. Absent: respiratory distress - Cardiovascular Cardiovascular Exam: Present: regular rate, normal rhythm - GI/Abdominal GI/Abdominal exam: Present: soft - Extremities Exam Extremities exam: Present: normal capillary refill, other ( Tenderness with palpation of the right leg diffusely. There is no edema. There is no warmth. There is no deformity.) - Back Exam Back exam: Absent: CVA tenderness (R), CVA tenderness (L) - Neurological Exam Neurological exam: Present: alert, oriented X3, CN II-XII intact, reflexes normal - Psychiatric Psychiatric exam: Present: normal affect, normal mood - Skin Skin exam: Present: warm, dry ED Course Vital Signs 09/14/21 14:55 Temperature 98.4 F Pulse Rate 60 Respiratory 16 Rate Blood Pressure 173/106 [Left] O2 Sat by Pulse 99 Oximetry - Reevaluation(s) Reevaluation #1: 09/14/21 14:59 Patient was seen as above. He has made symptoms that are chronic. There is no indication for emergent evaluation for some of these chronic conditions including leg pain. He was given antibiotics for his toothache. He was placed on analgesics. He was referred to a dentist. For these intermittent changes and problems that he seems to say come and go, he has been referred to his PCP for follow-up. ED Medical Decision Making - Medical Decision Making Patient presented with myriad issues that are all of various stages of acuity. The most acute problem is pain in the right lower mandible consistent with a toothache. He has dental caries. He was placed on antibiotics to prevent abscess and infection. He was told to see a dentist. He has intermittent visual problems that seem to come and go for months. He should follow-up with an construction executive or pediatric critical care nurse. He reports having intermittent pain down both legs. This is not related to any kind of vascular or dermatomal distribution. It is not related to any type of nerve root distribution. He can follow-up. Critical Care Time: No Critical care attestation.: If time is entered above; I have spent that time in minutes in the direct care of this critically ill patient, excluding procedure time. ED Disposition Clinical Impression: Dental caries, Apical alveolar abscess, Visual disturbance, Myalgia Disposition: 01 HOME / SELF CARE / HOMELESS Is pt being admited?: No Condition: Stable Instructions: Dental Abscess, Visual Disturbances Additional Instructions: Use ice for soreness. Have a soft diet. See dentist. Follow-up with your regular doctor and specialist for recheck. Take aspirin every day. Prescriptions: Lidocaine [Lidoderm] 1 each TP DAILY #30 adh..patch Penicillin V Potassium 500 mg PO TID #21 tablet Referrals: PRIMARY CARE, [Referring] - 3-5 Days
== END 2021-09-14 15:20 | disposition home or self-care (01) ==
LOC: ED 14:25
DX: K02.9 Dental caries, unspecified (principal); K04.7 Periapical abscess without sinus; M79.18 Myalgia, other site; H53.8 Other visual disturbances
CPT/HCPCS: 99282

== ENCOUNTER 2022-05-22 13:22 | Emergency (ER) | payer SELFPAY ==
[2022-05-22 17:41] LABS: Basophils % (Auto) 0.5 % (0.0-1.8); Eosinophils # (Auto) 0.1 K/mm3 (0.0-0.4); Eosinophils % (Auto) 1.9 % (0.0-4.3); Hematocrit 40.7 % (35.5-45.6); Lymphocytes # (Auto) 1.7 K/mm3 (1.2-5.4); Lymphocytes % (Auto) 22.3 % (13.4-35.0); Mean Corpuscular HGB Conc 32 % (32-34); Mean Corpuscular Volume 84 fl (84-94); Monocytes # (Auto) 0.7 K/mm3 (0.0-0.8); Monocytes % (Auto) 9.5 % (0.0-7.3); Platelet Count 172 K/mm3 (140-440); Red Blood Count 4.86 M/mm3 (3.65-5.03); Red Cell Distribution Width 15.2 % (13.2-15.2)
[2022-05-22 17:57] LABS: Alanine Aminotransferase 12 units/L (7-56); Albumin 4.3 g/dL (3.9-5); BUN/Creatinine Ratio 6; Blood Urea Nitrogen 8 mg/dL (9-20); Calcium 9.7 mg/dL (8.4-10.2); Hemolysis Index 8
[2022-05-22] MEDS ORDERED: methylPREDNISolone Sod Succinate 40 MG/1 ML INJ IM ONE (18:47)
[2022-05-22] MEDS ORDERED: cloNIDine 0.1 MG TAB PO ONE (18:47)
[2022-05-22] MEDS ORDERED: ACETAMINOPHEN 325 MG TAB PO ONE (18:47)
[2022-05-22] MEDS ORDERED: BENZONATATE 100 MG CAP PO ONE (18:49)
--- NOTE | 2022-05-22 18:49 | Emergency Department Report ---
ED General Adult HPI - General Chief complaint: High BP Stated complaint: JAW TIGHT/LEG PAIN/DRY COUGH/STROKE 2YRS AGO Time Seen by Provider: 05/22/22 18:37 Source: patient Mode of arrival: Ambulatory Limitations: No Limitations - History of Present Illness Initial comments: This is a 57 year old male who came in today with multiple complaints. 1. Dry coughs for several days 2. Sharp/numbness from right buttocks radiates down to posterior leg; no bowel/bladder incontinence/saddle analgesia. No trauma/injury 3. Elevated blood pressure; currently not on any medication. Previously on Amlodipine 10mg Denies any other symptoms. Severity scale (0 -10): 10 - Related Data Previous Rx's Medication Instructions Recorded Last Taken Type HYDROcodone/APAP 5-325 [[place] 1 each PO Q6HR PRN #10 tablet 05/29/14 Unknown Rx 5/325] Hydrocortisone 2.5% [Hytone 2.5% 1 applicatio TP TID #1 tube 05/29/14 Unknown Rx CREAM] Ibuprofen [Motrin] 800 mg PO Q8H #30 tablet 05/29/14 Unknown Rx Lisinopril/Hydrochlorothiazide 1 tab PO QDAY #30 tablet 07/18/14 Unknown Rx [Zestoretic 10-12.5 mg] Acetaminophen/Codeine [Tylenol #3] 1 tab PO TID PRN #15 tab 04/24/15 Unknown Rx methOCARBAMOL [Robaxin TAB] 500 mg PO BID #30 tab 04/24/15 Unknown Rx prednisoLONE ACETATE [Prednisolone 2 drops OP QID #1 bottle 10/05/16 Unknown Rx Acetate] Ibuprofen [Motrin] 600 mg PO Q8H PRN #30 tablet 11/22/17 Unknown Rx Diphenoxylate/Atropine [Lomotil] 2 tab PO QID PRN #20 tablet 12/18/17 Unknown Rx HYDROcodone/APAP 5-325 [[place] 1 - 2 each PO Q6HR PRN #10 tablet 12/18/17 Unknown Rx 5/325] Promethazine [Phenergan TAB] 25 mg PO Q6HR PRN #20 tab 12/18/17 Unknown Rx Promethazine [Phenergan] 25 mg [place] Q6HR PRN #5 supp.rect 12/18/17 Unknown Rx amLODIPine 10 mg PO DAILY #30 tab 11/01/20 Unknown Rx Lidocaine [Lidoderm] 1 each TP DAILY #30 adh..patch 09/14/21 Unknown Rx Penicillin V Potassium 500 mg PO TID #21 tablet 09/14/21 Unknown Rx Azithromycin [Zithromax Z-MAXIME] 0 mg PO DAILY #6 tab 05/22/22 Unknown Rx Benzonatate [Tessalon Perles] 100 mg PO Q8HR 3 Days #9 cap 05/22/22 Unknown Rx Ibuprofen [Ibu-200] 600 mg PO Q12H #8 05/22/22 Unknown Rx Allergies Allergy/AdvReac Type Severity Reaction Status Date / Time No Known Allergies Allergy Verified 04/24/15 14:48 ED Review of Systems ROS: Stated complaint: JAW TIGHT/LEG PAIN/DRY COUGH/STROKE 2YRS AGO Other details as noted in HPI Comment: All other systems reviewed and negative ED Past Medical Hx - Past Medical History Hx Hypertension: Yes Hx CVA: Yes - Social History Smoking Status: Current Every Day Smoker Substance Use Type: Marijuana - Medications Home Medications: Home Medications Medication Instructions Recorded Confirmed Last Taken Type HYDROcodone/APAP 5-325 [[place] 1 each PO Q6HR PRN #10 tablet 05/29/14 Unknown Rx 5/325] Hydrocortisone 2.5% [Hytone 2.5% 1 applicatio TP TID #1 tube 05/29/14 Unknown Rx CREAM] Ibuprofen [Motrin] 800 mg PO Q8H #30 tablet 05/29/14 Unknown Rx Lisinopril/Hydrochlorothiazide 1 tab PO QDAY #30 tablet 07/18/14 Unknown Rx [Zestoretic 10-12.5 mg] Acetaminophen/Codeine [Tylenol #3] 1 tab PO TID PRN #15 tab 04/24/15 Unknown Rx methOCARBAMOL [Robaxin TAB] 500 mg PO BID #30 tab 04/24/15 Unknown Rx prednisoLONE ACETATE [Prednisolone 2 drops OP QID #1 bottle 10/05/16 Unknown Rx Acetate] Ibuprofen [Motrin] 600 mg PO Q8H PRN #30 tablet 11/22/17 Unknown Rx Diphenoxylate/Atropine [Lomotil] 2 tab PO QID PRN #20 tablet 12/18/17 Unknown Rx HYDROcodone/APAP 5-325 [[place] 1 - 2 each PO Q6HR PRN #10 tablet 12/18/17 Unknown Rx 5/325] Promethazine [Phenergan TAB] 25 mg PO Q6HR PRN #20 tab 12/18/17 Unknown Rx Promethazine [Phenergan] 25 mg [place] Q6HR PRN #5 supp.rect 12/18/17 Unknown Rx amLODIPine 10 mg PO DAILY #30 tab 11/01/20 Unknown Rx Lidocaine [Lidoderm] 1 each TP DAILY #30 adh..patch 09/14/21 Unknown Rx Penicillin V Potassium 500 mg PO TID #21 tablet 09/14/21 Unknown Rx Azithromycin [Zithromax Z-MAXIME] 0 mg PO DAILY #6 tab 05/22/22 Unknown Rx Benzonatate [Tessalon Perles] 100 mg PO Q8HR 3 Days #9 cap 05/22/22 Unknown Rx Ibuprofen [Ibu-200] 600 mg PO Q12H #8 05/22/22 Unknown Rx ED Physical Exam - General Limitations: No Limitations General appearance: alert, in no apparent distress - Head Head exam: Present: atraumatic, normocephalic, normal inspection - Eye Eye exam: Present: normal appearance, PERRL, EOMI Pupils: Present: normal accommodation - ENT ENT exam: Present: normal exam, normal orophraynx, mucous membranes moist - Neck Neck exam: Present: normal inspection, full ROM - Respiratory Respiratory exam: Present: normal lung sounds bilaterally, other (dry hacking cough.) - Cardiovascular Cardiovascular Exam: Present: regular rate, normal rhythm, normal heart sounds - GI/Abdominal GI/Abdominal exam: Present: soft - Extremities Exam Extremities exam: Present: normal inspection, full ROM, normal capillary refill - Back Exam Back exam: Present: normal inspection, full ROM - Neurological Exam Neurological exam: Present: alert, oriented X3, CN II-XII intact - Psychiatric Psychiatric exam: Present: normal affect, normal mood - Skin Skin exam: Present: normal color ED Course Vital Signs 05/22/22 14:07 Temperature 98.6 F Pulse Rate 74 Respiratory 20 Rate Blood Pressure 180/104 [Left] O2 Sat by Pulse 99 Oximetry ED Medical Decision Making - Lab Data Result diagrams: 05/22/22 17:06 05/22/22 17:06 Critical care attestation.: If time is entered above; I have spent that time in minutes in the direct care of this critically ill patient, excluding procedure time. ED Disposition Clinical Impression: Elevated blood pressure reading, Sciatic leg pain, Bronchitis Disposition: 01 HOME / SELF CARE / HOMELESS Is pt being admited?: No Does the pt Need Aspirin: No Condition: Stable Instructions: Chronic Bronchitis (ED), Hypertension, Adult, Sciatica Additional Instructions: Take medications that's prescribed for you and make a follow up appointment with your primary care provider to be seen within 3 days for further outpatient evaluations. Prescriptions: Ibuprofen [Ibu-200] 600 mg PO Q12H #8 Benzonatate [Tessalon Perles] 100 mg PO Q8HR 3 Days #9 cap Azithromycin [Zithromax Z-MAXIME] 0 mg PO DAILY #6 tab Time of Disposition: 18:55
[2022-05-22 19:31] VITALS: BP 177/105
== END 2022-05-22 19:48 | disposition home or self-care (01) ==
LOC: ED 13:22
DX: I10 Essential (primary) hypertension (principal); M79.605 Pain in left leg; J40 Bronchitis, not specified as acute or chronic; Z86.73 Personal history of transient ischemic attack (TIA), and cerebral infarction without residual deficits; F17.200 Nicotine dependence, unspecified, uncomplicated
CPT/HCPCS: 36415; 80053; 85025; 96372; 99283; J2920